=== PATIENT | female | born 1980 | race Caucasian/White ===

== ENCOUNTER 2017-04-13 08:53 | Emergency (ER) | payer SELFPAY ==
[~2017-04-13] VITALS: Ht 157.5 cm; Wt 54.0 kg
[~2017-04-13 08:53] MED LIST: ACYCLOVIR800 MG PO; ALEVE220 MG OR; AMOXICILLIN500 MG PO; CEPHALEXIN500 M1 OR; CLINDAMYCIN150 MG OR; DIFLUCAN150 MG PO; DIP/TET TOXOID0.5 ML IM; DOXYCYC MONO100 M1 OR; FLEXERIL PO; FLEXERIL5 M1 PO; IRON CHEWS; LEXAPRO10 MG OR; LEXAPRO20 MG; LEXAPRO20 MG PO; LORTAB 7.5-3251 TAB PO; MOTRIN800 MG/TAB PO; ONDANSETRON4 MG PO; ULTRAM50 M1 PO; ULTRAM50 MG OR; ZANTAC 150 MAX150 MG; ZOFRAN4 MG/TAB PO; [UNRECOGNIZED DRUG - OTHER] PO
[2017-04-13] MEDS ORDERED: ZITHROMAX Z-PA250 MG (09:17)
[2017-04-13 09:32] LABS: HEMATOCRIT 35.7 % (37.0-47.0); HEMOGLOBIN 12.4 g/dl (12.0-16.0); IMMATURE GRANULOCYTES 0.4 % (0.0-1.0); MEAN CELL VOLUME 92.7 fL CALC (80.0-100.0); MEAN CORPUSCULAR HGB 32.2 pG CALC (26.0-32.0); MEAN CORPUSCULAR HGB CONC 34.7 g/L CALC (32.0-36.0); NEUT# 2.2 thou/uL (2.00-7.15); RED BLOOD COUNT 3.85 mill/uL (4.20-5.60); RED CELL DISTRI WIDTH 11.5 % (11.5-15.5)
[2017-04-13 09:42] LABS: HCG SERUM/URINE (NEG/POS) NEGATIVE (NEGATIVE)
[2017-04-13 09:45] LABS: INFLUENZA A NONE DETECTED (NONE DETECT); INFLUENZA B NONE DETECTED (NONE DETECT)
[2017-04-13 09:47] LABS: ALBUMIN 4.5 g/dL (3.2-5.0); ALKALINE PHOSPHATASE 52 u/l (38-126); ANION GAP 13 (6-22 (CALC)); BILIRUBIN, TOTAL 0.5 mg/dL (0.0-1.4); BUN 13 mg/dL (7-17); BUN/CREATININE RATIO 19 (12-20 (CALC)); CALCIUM 9.1 mg/dL (8.4-10.2); CARBON DIOXIDE 26 mmol/l (22-30); CHLORIDE 107 mmol/l (95-108); CREATININE 0.7 mg/dL (0.5-1.0); GFR > 60 ML/MIN (>=60 (CALC)); GFR FOR AFR.AMER. > 60 ML/MIN (>=60 (CALC)); GLUCOSE 92 mg/dL (65-105); SGOT/AST 15 u/l (14-36); SGPT/ALT 32 u/l (9-52); SODIUM 142 mmol/l (137-146); TOTAL PROTEIN 7.4 g/dL (6.3-8.2)
[2017-04-13 09:59] LABS: MYOGLOBIN 21 ng/mL (0 - 62)
[2017-04-13 10:59] LABS: URINE BILIRUBIN - DIPSTICK NEGATIVE (NEGATIVE); URINE BLOOD DIPSTICK MODERATE (NEGATIVE); URINE COLOR YELLOW; URINE GLUCOSE - DIPSTICK NEGATIVE (NEGATIVE); URINE KETONE 15 mg/dL (NEGATIVE); URINE LEUK ESTERASE NEGATIVE (NEGATIVE); URINE NITRITE - DIPSTICK NEGATIVE (Negative); URINE PROTEIN - DIPSTICK NEGATIVE (NEG-TRACE); URINE UROBILINOGEN - DIPSTICK 0.2 E.U./dL (0.2)
[2017-04-13 11:00] LABS: URINE CLARITY SL CLOUDY
[2017-04-13 11:24] LABS: URINE AMORPH SEDIMENT MODERATE hpf (NONE-FEW); URINE RBC 25-50 RBC/hpf (0-5)
[2017-04-13 11:25] LABS: URINE SQUAMOUS EPITHELIAL CELL FEW EPI/hpf (0-FEW); URINE WBC 0-2 WBC/hpf (0-5)
[2017-04-13 11:35] VITALS: BP 126/58
== END 2017-04-13 11:45 | disposition home or self-care (01) | DRG 203 ==
LOC: ED 08:53
PROVIDERS: Emergency Medicine
DX: J20.9 Acute bronchitis, unspecified (principal); R06.02 Shortness of breath; R50.9 Fever, unspecified; R09.81 Nasal congestion; R07.9 Chest pain, unspecified

== ENCOUNTER 2018-07-08 16:49 | Emergency (ER) | payer OTHER ==
[~2018-07-08] VITALS: Ht 157.5 cm; Wt 62.0 kg
[~2018-07-08 16:49] MED LIST changes: +ZITHROMAX Z-PA250 MG
[2018-07-08] MEDS ORDERED: GABAPENTIN100 MG PO (17:00)
[2018-07-08] MEDS ORDERED: LORAZEPAM0.5 MG PO (17:00)
[2018-07-08] MEDS ORDERED: LORTAB 1010 MG PO (18:45)
[2018-07-08] MEDS ORDERED: FLEXERIL PO (18:45)
[2018-07-08 18:59] VITALS: BP 98/61
== END 2018-07-08 19:04 | disposition home or self-care (01) | DRG 552 ==
LOC: ED 16:49
DX: S13.9XXA Sprain of joints and ligaments of unspecified parts of neck, initial encounter (principal); S20.211A Contusion of right front wall of thorax, initial encounter; V49.40XA Driver injured in collision with unspecified motor vehicles in traffic accident, initial encounter

== ENCOUNTER 2018-08-12 17:02 | Emergency (ER) | payer BC ==
[~2018-08-12] VITALS: Ht 157.5 cm; Wt 49.6 kg
[~2018-08-12 17:02] MED LIST changes: +GABAPENTIN100 MG PO; +LORAZEPAM0.5 MG PO; +LORTAB 1010 MG PO
[2018-08-12 18:54] LABS: HEMATOCRIT 33.8 % (37.0-47.0); HEMOGLOBIN 11.6 g/dl (12.0-16.0); IMMATURE GRANULOCYTES 0.2 % (0.0-5.0); MEAN CELL VOLUME 93.4 fL CALC (80.0-100.0); MEAN CORPUSCULAR HGB CONC 34.3 g/L CALC (32.0-36.0); NEUT# 1.84 thou/uL (2.00-7.15); RED BLOOD COUNT 3.62 mill/uL (4.20-5.60); RED CELL DISTRI WIDTH 11.8 % (11.5-15.5)
[2018-08-12 19:06] LABS: ALBUMIN 4.3 g/dL (3.2-5.0); ALKALINE PHOSPHATASE 44 u/l (38-126); ANION GAP 14 (6-22 (CALC)); BILIRUBIN, TOTAL 0.2 mg/dL (0.0-1.4); BUN 15 mg/dL (7-17); BUN/CREATININE RATIO 20 (12-20 (CALC)); CARBON DIOXIDE 24 mmol/l (22-30); CHLORIDE 107 mmol/l (95-108); CREATININE 0.7 mg/dL (0.5-1.0); GFR > 60 ML/MIN (>=60 (CALC)); GFR FOR AFR.AMER. > 60 ML/MIN (>=60 (CALC)); SGOT/AST 14 u/l (14-36); SODIUM 141 mmol/l (137-146); TOTAL PROTEIN 7.1 g/dL (6.3-8.2)
[2018-08-12 19:58] LABS: URINE BILIRUBIN - DIPSTICK NEGATIVE (NEGATIVE); URINE BLOOD DIPSTICK NEGATIVE (NEGATIVE); URINE COLOR YELLOW; URINE GLUCOSE - DIPSTICK NEGATIVE (NEGATIVE); URINE KETONE NEGATIVE (NEGATIVE); URINE LEUK ESTERASE TRACE (NEGATIVE); URINE NITRITE - DIPSTICK NEGATIVE (Negative); URINE PROTEIN - DIPSTICK NEGATIVE (NEG-TRACE); URINE SPECIFIC GRAVITY <=1.005; URINE UROBILINOGEN - DIPSTICK 0.2 E.U./dL (0.2)
[2018-08-12] MEDS ORDERED: PHENERGAN25 MG/TAB PO (20:41)
[2018-08-12 21:11] VITALS: BP 109/73
== END 2018-08-12 21:11 | disposition home or self-care (01) | DRG 866 ==
LOC: ED 17:02
PROVIDERS: Family Medicine
DX: B34.9 Viral infection, unspecified (principal); R50.9 Fever, unspecified; R19.7 Diarrhea, unspecified; R11.2 Nausea with vomiting, unspecified; R53.83 Other fatigue; R09.81 Nasal congestion

== ENCOUNTER 2018-12-15 23:17 | Emergency (ER) | payer BC ==
[~2018-12-15] VITALS: Ht 157.5 cm; Wt 48.6 kg
[~2018-12-15 23:17] MED LIST changes: +PHENERGAN25 MG/TAB PO
[2018-12-16 00:10] LABS: HEMATOCRIT 36.7 % (37.0-47.0); HEMOGLOBIN 12.6 g/dl (12.0-16.0); IMMATURE GRANULOCYTES 0.4 % (0.0-5.0); MEAN CELL VOLUME 92.9 fL CALC (80.0-100.0); MEAN CORPUSCULAR HGB 31.9 pG CALC (26.0-32.0); MEAN CORPUSCULAR HGB CONC 34.3 g/L CALC (32.0-36.0); NEUT# 3.93 thou/uL (2.00-7.15); RED BLOOD COUNT 3.95 mill/uL (4.20-5.60); RED CELL DISTRI WIDTH 11.7 % (11.5-15.5)
[2018-12-16] MEDS ORDERED: MELOXICAM7.5 MG PO (00:18)
[2018-12-16] MEDS ORDERED: MYSOLINE50 M2 PO (00:19)
[2018-12-16] MEDS ORDERED: FLEXERIL5 M1 PO (00:20)
[2018-12-16 00:27] LABS: ALBUMIN 4.6 g/dL (3.2-5.0); ALKALINE PHOSPHATASE 53 u/l (38-126); ANION GAP 14 (6-22 (CALC)); BUN 12 mg/dL (7-17); BUN/CREATININE RATIO 23 (12-20 (CALC)); CARBON DIOXIDE 26 mmol/l (22-30); CHLORIDE 105 mmol/l (95-108); CPK 40 u/l (30-165); CREATININE 0.5 mg/dL (0.5-1.0); GFR > 60 ML/MIN (>=60 (CALC)); GFR FOR AFR.AMER. > 60 ML/MIN (>=60 (CALC)); MAGNESIUM 1.9 mg/dL (1.6-2.3); POTASSIUM 3.9 mmol/l (3.5-5.1); SGOT/AST 14 u/l (14-36); SODIUM 140 mmol/l (137-146); TOTAL PROTEIN 7.7 g/dL (6.3-8.2)
[2018-12-16 00:29] LABS: BILIRUBIN, TOTAL 0.3 mg/dL (0.0-1.4)
[2018-12-16] MEDS ORDERED: ANTIVERT PO (00:56)
[2018-12-16 01:05] VITALS: BP 107/62
== END 2018-12-16 01:10 | disposition home or self-care (01) | DRG 93 ==
LOC: ED 23:17
PROVIDERS: Family Medicine
DX: G24.3 Spasmodic torticollis (principal); R42 Dizziness and giddiness; F17.210 Nicotine dependence, cigarettes, uncomplicated
CPT/HCPCS: J2060

== ENCOUNTER 2019-02-15 22:10 | Emergency (ER) | payer BC ==
[~2019-02-15] VITALS: Ht 157.5 cm; Wt 60.0 kg
[~2019-02-15 22:10] MED LIST changes: +ANTIVERT PO; +MELOXICAM7.5 MG PO; +MYSOLINE50 M2 PO
[2019-02-15] MEDS ORDERED: BUSPAR5 MG PO (22:19)
[2019-02-15] MEDS ORDERED: LORAZEPAM0.5 MG PO (22:19)
[2019-02-15] MEDS ORDERED: FLEXERIL5 MG PO (22:20)
[2019-02-15] MEDS ORDERED: MELOXICAM7.5 MG PO (22:21)
[2019-02-15 23:15] LABS: HEMATOCRIT 33.3 % (37.0-47.0); HEMOGLOBIN 11.4 g/dl (12.0-16.0); IMMATURE GRANULOCYTES 0.2 % (0.0-5.0); MEAN CELL VOLUME 92.5 fL CALC (80.0-100.0); MEAN CORPUSCULAR HGB 31.7 pG CALC (26.0-32.0); MEAN CORPUSCULAR HGB CONC 34.2 g/L CALC (32.0-36.0); NEUT# 1.91 thou/uL (2.00-7.15); RED BLOOD COUNT 3.6 mill/uL (4.20-5.60); RED CELL DISTRI WIDTH 11.9 % (11.5-15.5)
[2019-02-15 23:28] LABS: ALBUMIN 4.5 g/dL (3.2-5.0); ALKALINE PHOSPHATASE 48 u/l (38-126); AMYLASE 74 u/l (30-110); ANION GAP 13 (6-22 (CALC)); BILIRUBIN, TOTAL 0.3 mg/dL (0.0-1.4); BUN 14 mg/dL (7-17); BUN/CREATININE RATIO 21 (12-20 (CALC)); CARBON DIOXIDE 26 mmol/l (22-30); CHLORIDE 104 mmol/l (95-108); CREATININE 0.7 mg/dL (0.5-1.0); GFR > 60 ML/MIN (>=60 (CALC)); GFR FOR AFR.AMER. > 60 ML/MIN (>=60 (CALC)); LIPASE 136 u/l (23-300); POTASSIUM 3.9 mmol/l (3.5-5.1); SGOT/AST 13 u/l (14-36); SODIUM 138 mmol/l (137-146); TOTAL PROTEIN 7.3 g/dL (6.3-8.2)
[2019-02-15 23:45] LABS: URINE BILIRUBIN - DIPSTICK NEGATIVE (NEGATIVE); URINE BLOOD DIPSTICK NEGATIVE (NEGATIVE); URINE COLOR YELLOW; URINE GLUCOSE - DIPSTICK NEGATIVE (NEGATIVE); URINE KETONE NEGATIVE (NEGATIVE); URINE LEUK ESTERASE NEGATIVE (NEGATIVE); URINE NITRITE - DIPSTICK NEGATIVE (Negative); URINE PROTEIN - DIPSTICK NEGATIVE (NEG-TRACE); URINE SPECIFIC GRAVITY 1.025; URINE UROBILINOGEN - DIPSTICK 0.2 E.U./dL (0.2)
[2019-02-16 00:55] VITALS: BP 105/57
== END 2019-02-16 00:56 | disposition home or self-care (01) | DRG 392 ==
LOC: ED 22:10
PROVIDERS: Emergency Medicine
DX: R10.12 Left upper quadrant pain (principal); F17.210 Nicotine dependence, cigarettes, uncomplicated
CPT/HCPCS: Q9967

== ENCOUNTER 2019-05-16 | Emergency (ER) | payer BC ==
[~2019-05-16] MED LIST changes: +BUSPAR5 MG PO; +FLEXERIL5 MG PO
[2019-05-16 20:24] LABS: HEMATOCRIT 35.7 % (37.0-47.0); HEMOGLOBIN 12.1 g/dl (12.0-16.0); IMMATURE GRANULOCYTES 0.2 % (0.0-5.0); MEAN CORPUSCULAR HGB 31.5 pG CALC (26.0-32.0); MEAN CORPUSCULAR HGB CONC 33.9 g/L CALC (32.0-36.0); NEUT# 1.63 thou/uL (2.00-7.15); RED BLOOD COUNT 3.84 mill/uL (4.20-5.60); RED CELL DISTRI WIDTH 11.8 % (11.5-15.5)
[2019-05-16 20:29] LABS: URINE BILIRUBIN - DIPSTICK NEGATIVE (NEGATIVE); URINE BLOOD DIPSTICK TRACE-INTACT (NEGATIVE); URINE COLOR YELLOW; URINE GLUCOSE - DIPSTICK NEGATIVE (NEGATIVE); URINE KETONE NEGATIVE (NEGATIVE); URINE LEUK ESTERASE NEGATIVE (NEGATIVE); URINE NITRITE - DIPSTICK NEGATIVE (Negative); URINE PROTEIN - DIPSTICK NEGATIVE (NEG-TRACE); URINE SPECIFIC GRAVITY >=1.030; URINE UROBILINOGEN - DIPSTICK 0.2 E.U./dL (0.2)
[2019-05-16 20:33] LABS: COCAINE POSITIVE (NEGATIVE); TETRAHYDROCANNABIONOL POSITIVE (NEGATIVE)
[2019-05-16 20:34] LABS: BARBITURATES NEGATIVE (NEGATIVE); METHADONE NEGATIVE (NEGATIVE); OXCYCODONE NEGATIVE (NEGATIVE); TRICYLIC ANTIDEPRESSANTS POSITIVE (NEGATIVE)
[2019-05-16 20:39] LABS: ALBUMIN 4.5 g/dL (3.2-5.0); ALKALINE PHOSPHATASE 50 u/l (38-126); AMYLASE 79 u/l (30-110); ANION GAP 13 (6-22 (CALC)); BILIRUBIN, TOTAL 0.3 mg/dL (0.0-1.4); BUN 16 mg/dL (7-17); BUN/CREATININE RATIO 20 (12-20 (CALC)); CARBON DIOXIDE 26 mmol/l (22-30); CHLORIDE 104 mmol/l (95-108); CREATININE 0.8 mg/dL (0.5-1.0); GFR > 60 ML/MIN (>=60 (CALC)); GFR FOR AFR.AMER. > 60 ML/MIN (>=60 (CALC)); LIPASE 192 u/l (23-300); POTASSIUM 3.9 mmol/l (3.5-5.1); SGOT/AST 14 u/l (14-36); SODIUM 140 mmol/l (137-146); TOTAL PROTEIN 7.7 g/dL (6.3-8.2)
[2019-05-16] MEDS ORDERED: NAPROXEN500 MG PO (22:17)
== END 2019-05-16 22:32 | disposition home or self-care (01) | DRG 392 ==
DX: R10.11 Right upper quadrant pain (principal); R10.31 Right lower quadrant pain; F19.10 Other psychoactive substance abuse, uncomplicated; F17.210 Nicotine dependence, cigarettes, uncomplicated
CPT/HCPCS: Q9967

== ENCOUNTER 2019-07-18 | Emergency (ER) | payer BC, OTHER ==
[~2019-07-18] MED LIST changes: +NAPROXEN500 MG PO
[2019-07-18] MEDS ORDERED: FLEXERIL PO (19:45)
[2019-07-18] MEDS ORDERED: ULTRAM50 M1 PO (19:46)
== END 2019-07-18 19:47 | disposition home or self-care (01) | DRG 552 ==
DX: S13.9XXA Sprain of joints and ligaments of unspecified parts of neck, initial encounter (principal); S23.3XXA Sprain of ligaments of thoracic spine, initial encounter; F17.210 Nicotine dependence, cigarettes, uncomplicated; V48.6XXA Car passenger injured in noncollision transport accident in traffic accident, initial encounter

== ENCOUNTER 2019-07-22 | Emergency (ER) | payer BC ==
[2019-07-22 03:42] LABS: HEMATOCRIT 36.2 % (37.0-47.0); HEMOGLOBIN 12.1 g/dl (12.0-16.0); IMMATURE GRANULOCYTES 0.3 % (0.0-5.0); MEAN CELL VOLUME 93.1 fL CALC (80.0-100.0); MEAN CORPUSCULAR HGB 31.1 pG CALC (26.0-32.0); MEAN CORPUSCULAR HGB CONC 33.4 g/L CALC (32.0-36.0); NEUT# 7.74 thou/uL (2.00-7.15); RED BLOOD COUNT 3.89 mill/uL (4.20-5.60); RED CELL DISTRI WIDTH 11.8 % (11.5-15.5)
[2019-07-22 03:45] LABS: ALBUMIN 4.4 g/dL (3.2-5.0); ALKALINE PHOSPHATASE 46 u/l (38-126); AMYLASE 140 u/l (30-110); ANION GAP 12 (6-22 (CALC)); BILIRUBIN, TOTAL 0.3 mg/dL (0.0-1.4); BUN 16 mg/dL (7-17); BUN/CREATININE RATIO 23 (12-20 (CALC)); CARBON DIOXIDE 28 mmol/l (22-30); CHLORIDE 103 mmol/l (95-108); CREATININE 0.7 mg/dL (0.5-1.0); GFR > 60 ML/MIN (>=60 (CALC)); GFR FOR AFR.AMER. > 60 ML/MIN (>=60 (CALC)); LIPASE 101 u/l (23-300); POTASSIUM 3.6 mmol/l (3.5-5.1); SGOT/AST 16 u/l (14-36); SODIUM 140 mmol/l (137-146); TOTAL PROTEIN 7.3 g/dL (6.3-8.2)
[2019-07-22 04:58] LABS: URINE BILIRUBIN - DIPSTICK NEGATIVE (NEGATIVE); URINE BLOOD DIPSTICK MODERATE (NEGATIVE); URINE COLOR YELLOW; URINE GLUCOSE - DIPSTICK NEGATIVE (NEGATIVE); URINE KETONE NEGATIVE (NEGATIVE); URINE NITRITE - DIPSTICK NEGATIVE (Negative); URINE PH 6.5 (4.5-8.0); URINE PROTEIN - DIPSTICK NEGATIVE (NEG-TRACE); URINE UROBILINOGEN - DIPSTICK 0.2 E.U./dL (0.2)
[2019-07-22 05:10] LABS: URINE LEUK ESTERASE NEGATIVE (NEGATIVE)
[2019-07-22 05:11] LABS: URINE BACTERIA FEW hpf; URINE EPITHELIAL CELLS FEW EPI/hpf (0-FEW)
[2019-07-22 05:12] LABS: COCAINE NEGATIVE (NEGATIVE); TETRAHYDROCANNABIONOL POSITIVE (NEGATIVE)
[2019-07-22 05:13] LABS: BARBITURATES NEGATIVE (NEGATIVE); METHADONE NEGATIVE (NEGATIVE); OXCYCODONE NEGATIVE (NEGATIVE); TRICYLIC ANTIDEPRESSANTS POSITIVE (NEGATIVE)
[2019-07-22] MEDS ORDERED: MIRALAX3350 N1 PO (05:25)
[2019-07-22] MEDS ORDERED: TRAMADOL HCL50 MG PO (05:25)
[2019-07-22] MEDS ORDERED: MAGNESIUM296 ML/BTL PO (05:25)
[2019-07-22] MEDS ORDERED: NAPROXEN DR500 MG PO (05:25)
== END 2019-07-22 05:55 | disposition home or self-care (01) | DRG 392 ==
PROVIDERS: Family Medicine
DX: R10.32 Left lower quadrant pain (principal); F17.210 Nicotine dependence, cigarettes, uncomplicated
CPT/HCPCS: Q9967

== ENCOUNTER 2019-09-05 | Emergency (ER) | payer BC ==
[~2019-09-05] MED LIST changes: +MAGNESIUM296 ML/BTL PO; +MIRALAX3350 N1 PO; +NAPROXEN DR500 MG PO; +TRAMADOL HCL50 MG PO
[2019-09-05] MEDS ORDERED: GABAPENTIN300 M2 PO (23:51)
[2019-09-05] MEDS ORDERED: VALIUM2 MG PO (23:51)
[2019-09-05] MEDS ORDERED: MEDICAL MARIJUANA (23:52)
[2019-09-06 00:38] LABS: HEMATOCRIT 36.6 % (37.0-47.0); HEMOGLOBIN 12.3 g/dl (12.0-16.0); IMMATURE GRANULOCYTES 0.7 % (0.0-5.0); MEAN CELL VOLUME 92.2 fL CALC (80.0-100.0); MEAN CORPUSCULAR HGB CONC 33.6 g/dL CAL (32.0-36.0); NEUT# 9.04 thou/uL (2.00-7.15); RED BLOOD COUNT 3.97 mill/uL (4.20-5.60); RED CELL DISTRI WIDTH 12.1 % (11.5-15.5)
[2019-09-06 01:38] LABS: BUN 20 mg/dL (7-17); BUN/CREATININE RATIO 25 (12-20 (CALC)); CREATININE 0.8 mg/dL (0.5-1.0); GFR > 60 ML/MIN (>=60 (CALC)); GFR FOR AFR.AMER. > 60 ML/MIN (>=60 (CALC)); SODIUM 139 mmol/l (137-146)
[2019-09-06 01:39] LABS: ALBUMIN 4.3 g/dL (3.2-5.0); ANION GAP 12 (6-22 (CALC)); BILIRUBIN, TOTAL 0.4 mg/dL (0.0-1.4); CARBON DIOXIDE 29 mmol/l (22-30); CHLORIDE 102 mmol/l (95-108); TOTAL PROTEIN 7.4 g/dL (6.3-8.2)
[2019-09-06 01:40] LABS: ALKALINE PHOSPHATASE 44 u/l (38-126); AMYLASE 136 u/l (30-110); LIPASE 10 u/l (23-300); SGOT/AST 36 u/l (14-36)
[2019-09-06 04:36] LABS: URINE BILIRUBIN - DIPSTICK NEGATIVE (NEGATIVE); URINE BLOOD DIPSTICK NEGATIVE (NEGATIVE); URINE COLOR YELLOW; URINE GLUCOSE - DIPSTICK NEGATIVE (NEGATIVE); URINE KETONE NEGATIVE (NEGATIVE); URINE LEUK ESTERASE NEGATIVE (NEGATIVE); URINE NITRITE - DIPSTICK NEGATIVE (Negative); URINE PROTEIN - DIPSTICK NEGATIVE (NEG-TRACE); URINE SPECIFIC GRAVITY <=1.005; URINE UROBILINOGEN - DIPSTICK 0.2 E.U./dL (0.2)
[2019-09-06] MEDS ORDERED: TRAMADOL HCL50 MG PO (04:41)
[2019-09-06] MEDS ORDERED: MIRALAX3350 N1 PO (04:41)
== END 2019-09-06 05:05 | disposition home or self-care (01) | DRG 392 ==
PROVIDERS: Family Medicine
DX: K59.00 Constipation, unspecified (principal); F17.210 Nicotine dependence, cigarettes, uncomplicated
CPT/HCPCS: J2060; Q9967

== ENCOUNTER 2020-12-04 15:27 | Emergency (ER) | payer MEDICARE ==
[~2020-12-04] VITALS: Ht 157.5 cm; Wt 54.8 kg
[~2020-12-04 15:27] MED LIST changes: +GABAPENTIN300 M2 PO; +MEDICAL MARIJUANA; +VALIUM2 MG PO
[2020-12-04] MEDS ORDERED: AMOXICILLIN500 M2 PO (17:12)
[2020-12-04 17:17] VITALS: BP 118/62
== END 2020-12-04 17:27 | disposition home or self-care (01) ==
LOC: ED 15:27
DX: J02.9 Acute pharyngitis, unspecified (principal); F41.9 Anxiety disorder, unspecified; J45.909 Unspecified asthma, uncomplicated; G25.0 Essential tremor; G24.3 Spasmodic torticollis; F17.200 Nicotine dependence, unspecified, uncomplicated; Z20.822 Contact with and (suspected) exposure to COVID-19

== ENCOUNTER 2021-12-07 10:35 | Emergency (ER) | payer MEDICARE, MEDICAID ==
[2021-12-07] VITALS (8 sets, daily range): BP systolic 103–131; BP diastolic 67–90
[~2021-12-07] VITALS: Ht 157.5 cm; Wt 53.6 kg
[~2021-12-07 10:35] MED LIST changes: +AMOXICILLIN500 M2 PO
== END 2021-12-07 14:29 | disposition home or self-care (01) ==
LOC: ED 10:35
PROC: 2W3CX1Z Immobilization of Right Lower Arm using Splint (ICD-10-PCS; principal; 2021-12-07)
DX: S62.306A Unspecified fracture of fifth metacarpal bone, right hand, initial encounter for closed fracture (principal); Z32.02 Encounter for pregnancy test, result negative; E28.2 Polycystic ovarian syndrome; F41.9 Anxiety disorder, unspecified; J45.909 Unspecified asthma, uncomplicated; F17.200 Nicotine dependence, unspecified, uncomplicated; W22.09XA Striking against other stationary object, initial encounter; Y92.009 Unspecified place in unspecified non-institutional (private) residence as the place of occurrence of the external cause

== ENCOUNTER 2022-04-02 12:28 | Emergency (ER) | payer MEDICARE, MEDICAID ==
[~2022-04-02] VITALS: Ht 157.5 cm; Wt 54.5 kg
[2022-04-02 13:36] VITALS: BP 112/81
[2022-04-02 13:45] VITALS: BP 110/76
[2022-04-02 14:00] VITALS: BP 106/72
[2022-04-02] MEDS ORDERED: DIAZEPAM10 MG PO (14:14)
[2022-04-02 14:21] VITALS: BP 106/72
== END 2022-04-02 14:26 | disposition home or self-care (01) ==
LOC: ED 12:28
DX: Z76.0 Encounter for issue of repeat prescription (principal); G24.3 Spasmodic torticollis; F41.9 Anxiety disorder, unspecified; J45.909 Unspecified asthma, uncomplicated; G25.0 Essential tremor; F17.200 Nicotine dependence, unspecified, uncomplicated

== ENCOUNTER 2022-07-16 10:33 | Emergency (ER) | payer MEDICARE, MEDICAID ==
[~2022-07-16] VITALS: Ht 157.5 cm; Wt 65.8 kg
[2022-07-16] VITALS (19 sets, daily range): BP systolic 103–126; BP diastolic 67–78
[~2022-07-16 10:33] MED LIST changes: +DIAZEPAM10 MG PO
[2022-07-16 11:11] LABS: BASO% 0.8 % (0-3); EOS% 4.8 % (0-8); HEMATOCRIT 36.5 % (37.0-47.0); HEMOGLOBIN 12.3 g/dl (12.0-16.0); IMMATURE GRANULOCYTES 0.2 % (0.0-5.0); LYMPH% 35.5 % (15-41); MEAN CELL VOLUME 94.1 fL CALC (80.0-100.0); MEAN CORPUSCULAR HGB 31.7 pG CALC (26.0-32.0); MEAN CORPUSCULAR HGB CONC 33.7 g/dL CAL (32.0-36.0); MONO% 8.3 % (2-13); NEUT# 2.62 thou/uL (2.00-7.15); NEUT% 50.4 % (42-76); RED BLOOD COUNT 3.88 mill/uL (4.20-5.60); RED CELL DISTRI WIDTH 11.7 % (11.5-15.5)
[2022-07-16 11:30] LABS: ALBUMIN 4.4 g/dL (3.2-5.0); ALKALINE PHOSPHATASE 51 u/l (38-126); ANION GAP 10 (6-22 (CALC)); BUN 13 mg/dL (7-17); BUN/CREATININE RATIO 16 (12-20 (CALC)); CARBON DIOXIDE 24 mmol/l (22-30); CHLORIDE 111 mmol/l (95-108); CREATININE 0.8 mg/dL (0.5-1.0); GFR FOR AFR.AMER. > 60 ML/MIN (>=60 (CALC)); GFR OTHER RACES > 60 ML/MIN (>=60 (CALC)); POTASSIUM 4.4 mmol/l (3.5-5.1); SGOT/AST 24 u/l (14-36); SODIUM 141 mmol/l (137-146); TOTAL PROTEIN 7.3 g/dL (6.3-8.2)
[2022-07-16 11:31] LABS: BILIRUBIN, TOTAL 0.2 mg/dL (0.02-1.3)
== END 2022-07-16 15:19 | disposition home or self-care (01) ==
LOC: ED 10:33
PROVIDERS: Family Medicine
DX: R07.9 Chest pain, unspecified (principal); G24.9 Dystonia, unspecified; F41.9 Anxiety disorder, unspecified; J45.901 Unspecified asthma with (acute) exacerbation; F17.200 Nicotine dependence, unspecified, uncomplicated

== ENCOUNTER 2023-01-20 16:28 | Emergency (ER) | payer MEDICARE, MEDICAID ==
[~2023-01-20] VITALS: Ht 157.5 cm; Wt 56.6 kg
[2023-01-20 16:41] VITALS: BP 126/86
[2023-01-20 16:44] VITALS: BP 110/64
[2023-01-20] MEDS ORDERED: PROAIR HFA IN (18:10)
[2023-01-20] MEDS ORDERED: ZPAK PO (18:10)
[2023-01-20] MEDS ORDERED: MEDDOSEPAK PO (18:10)
[2023-01-20 18:26] VITALS: BP 110/64
[2023-01-20] MEDS ORDERED: AEROCHAMBE1 IN (18:57)
== END 2023-01-20 18:27 | disposition home or self-care (01) ==
LOC: ED 16:28
DX: J06.9 Acute upper respiratory infection, unspecified (principal); J45.909 Unspecified asthma, uncomplicated; F41.9 Anxiety disorder, unspecified; G24.3 Spasmodic torticollis; G25.0 Essential tremor; Z20.822 Contact with and (suspected) exposure to COVID-19